=== PATIENT | male | born 1985 | race Caucasian/White ===

== ENCOUNTER 2021-05-25 09:00 | Outpatient (CLI) | payer BC | END 2021-05-25 09:30 | disposition home or self-care (01) | LOC: PPH VACUNA 09:00 | PROVIDERS: ATTEND Emergency Medicine Pediatric Emergency Medicine | DX: Z23 Encounter for immunization (principal) ==

== ENCOUNTER 2023-08-21 10:58 | Emergency (ER) | payer BC ==
[~2023-08-21] VITALS: Ht 177.8 cm; Wt 86.2 kg
== END 2023-08-21 13:36 | disposition home or self-care (01) ==
LOC: ER 10:58
DX: S69.81XA Other specified injuries of right wrist, hand and finger(s), initial encounter (principal); X58.XXXA Exposure to other specified factors, initial encounter; Y93.75 Activity, martial arts; Y92.89 Other specified places as the place of occurrence of the external cause; Y99.8 Other external cause status